=== PATIENT | female | born 1990 | race Caucasian/White ===

== ENCOUNTER 2019-02-01 14:35 | Outpatient (CLI) | payer OTHER ==
[2019-02-01] MEDS ORDERED: None per pt (15:01)
[2019-02-01] MEDS ORDERED: BUPR-173 PO (15:20)
[2019-02-01] MEDS ORDERED: SUMA100T4 PO (15:20)
[2019-02-01] MEDS ORDERED: MESA1.2T PO (15:20)
[2019-02-01] MEDS ORDERED: ESCI10TA10 PO (15:20)
== END 2019-02-01 23:59 | disposition home or self-care (01) ==
LOC: STAR 14:35
PROVIDERS: ATTEND Surgery
DX: Z02.9 Encounter for administrative examinations, unspecified (principal)

== ENCOUNTER 2019-02-06 15:01 | Day surgery (SDC) | payer OTHER ==
[~2019-02-06] VITALS: Ht 175.3 cm; Wt 94.6 kg
[~2019-02-06 15:01] MED LIST: ACETAMINOPHEN 325 MG TABLET PO PRN; ACETAMINOPHEN 650 MG/20.3 ML UDC ONE; APREPITANT 40 MG CAPSULE ONE; BUPIVACAINE/PF 0.5% ONE; BUPR-173 PO; CEFOTETAN 2 GM ONE; DEXAMETHASONE 4 MG/ML, 1ML ONE; EPINEPHRINE 1 MG/ML, 1ML ONE; ESCI10TA10 PO; FENTANYL PF 100 MCG/2ML IV PRN; FENTANYL PF 100 MCG/2ML ONE; FENTANYL PF 250 MCG/5ML ONE; GABAPENTIN 300 MG CAPSULE ONE; HALOPERIDOL 5 MG/ML ONE; HYDROmorphone 2 MG/ML, 1ML IVPush PRN; KETOROLAC 30 MG/1 ML ONE; MEPERIDINE/PF 25MG/ML,1ML IVPush PRN; MEPERIDINE/PF 25MG/ML,1ML ONE; MESA1.2T PO; METOPROLOL 1 MG/ML, 5ML ONE; MIDAZOLAM 1 MG/ML, 2ML ONE; None per pt; ONDANSETRON 2MG/ML, 2ML ONE; OXYcodone 5 MG/5 ML ORAL.SOL UDC ONE; OXYcodone 5 MG/5 ML ORAL.SOL UDC PO PRN; PROMETHAZINE 25 MG/ML, 1ML IV PRN; PROPOFOL 10 MG/ML, 20ML ONE; ROCURONIUM 10 MG/ML,10ML ONE; SUMA100T4 PO; hydrALAzine 20 MG/ML, 1ML IV PRN
== END 2019-02-06 17:10 | disposition home or self-care (01) ==
LOC: OR 15:01
PROVIDERS: ATTEND Surgery
DX: K82.8 Other specified diseases of gallbladder (principal); E66.9 Obesity, unspecified; K52.839 Microscopic colitis, unspecified; G43.909 Migraine, unspecified, not intractable, without status migrainosus; F32.9 Major depressive disorder, single episode, unspecified; F41.9 Anxiety disorder, unspecified; Z68.30 Body mass index [BMI] 30.0-30.9, adult; Z79.899 Other long term (current) drug therapy; Z87.442 Personal history of urinary calculi; Z88.0 Allergy status to penicillin; Z88.2 Allergy status to sulfonamides
CPT/HCPCS: 47562; 81025; 88304; J0171; J1100; J1885; J2175; J2405; J2704; J3010; J3490; J2250; J8501